=== PATIENT | male | born 1960 | race Caucasian/White ===

== ENCOUNTER 2016-12-10 03:54 | Emergency (ER) | payer OTHER ==
[~2016-12-10] VITALS: Ht 180.3 cm; Wt 70.3 kg
[~2016-12-10 03:54] MED LIST: CEPH500C2 PO; CLON0.2T PO; OXYC1TAB3 PO
[2016-12-10 03:57] VITALS: BP 129/87; TEMP 36.4; Ht 180.3 cm; Wt 70.3 kg
[2016-12-10] MEDS ORDERED: PROPARACAINE HCL 0.5% OP SOLN 15 ML BTL ONE (04:11)
[2016-12-10] MEDS ORDERED: OXYCODONE IR HOME PACK PO ONE (04:30)
[2016-12-10] MEDS ORDERED: CIPROFLOXACIN HCL 0.3% OP SOLN 2.5 ML BTL OP ONE (04:30)
[2016-12-10 04:46] VITALS: PULSE 99; O2SAT 97
--- NOTE | 2016-12-10 05:39 | EMERGENCY ROOM VISIT NOTE ---
ED Visit Note First contact with patient: 04:03 CHIEF COMPLAINT: Eye pain HISTORY OF PRESENT ILLNESS: This 56 year old male patient presents to the emergency department complaining of pain in the left eye for the past one hour. The patient states that when he went to bed he felt well, but when he woke up he had a very sharp pain in his left eye. There has been a constant moderate pain and irritation, redness and tearing in the eye. There is a mild blurring of vision at times and light bothers the eye. The vision has not been decreased over all. The patient does not wear contacts. 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 The patient rates the pain as sharp and 9/10. The patient has not had previous injuries to this eye. Tetanus shot is reportedly up to date. REVIEW OF SYSTEMS: A 6 system review of systems was completed with positives and pertinent negatives listed in the HPI. ALLERGIES:NKDA MEDICATIONS: No chronic medications PMH: Otherwise healthy SOCIAL HISTORY: Employed and lives with family PHYSICAL EXAM: Vital Signs: Reviewed Nurse's notes, vital signs stable. Visual acuity 20/30 bilateral. GENERAL: This is a white male, in no acute distress, but who is uncomfortable from the eye problem. Well-developed well-nourished. EYES: The pupils are equal round and reactive to light and accommodation. EOMs are full and without tenderness. There is discharge of clear tears from the left eye which is injected. There is no foreign body visible under the eyelid even after lid eversion. Funduscopic exam reveals no hemorrhages, papilledema, or other abnormalities. No foreign body was seen embedded in the cornea under slit lamp exam. The cornea was clear and no hyphema was seen. Fluorescein uptake was observed with ultraviolet light significant for a corneal abrasion between 2:00 and 7:00. EMERGENCY DEPARTMENT COURSE: Physical examination history were performed. Nursing notes and EMR were reviewed. The patient has left eye pain for the past hour. On examination he does have a notable corneal abrasion without laceration or ulceration. No foreign body is noted. The patient will be started on Ciloxan and given a home pack of OxyIR. He will be given information to follow with ophthalmology. Patient was invited back to the ER with any new, worsening, or concerning symptoms. Current/Historical Medications No Active Prescriptions or Reported Meds Allergies Coded Allergies: No Known Allergies (Verified , 4/28/17) Vital Signs Date Time Temp Pulse Resp B/P Pulse Ox O2 Delivery O2 Flow Rate FiO2 12/10/16 04:46 99 18 97 12/10/16 03:57 36.4 107 18 129/87 98 Room Air Medications Administered Medications (Trade) Dose Ordered Sig/Suki Route Start Time Stop Time Status Last Admin Dose Admin Ciprofloxacin HCl (Ciprofloxacin 0.3% Op Soln) 2 drops NOW ONCE OP 12/10/16 04:30 12/10/16 04:31 DC 12/10/16 04:30 2 DROPS Departure Information Impression Primary Impression: Corneal abrasion Dispostion Home / Self-Care Condition GOOD Prescriptions No Active Prescriptions or Reported Meds Referrals Marty Charles D.O. Forms HOME CARE DOCUMENTATION FORM, IMPORTANT VISIT INFORMATION Patient Instructions My [facility] Additional Instructions You were seen and evaluated today on an emergency basis only. This is not a substitute for, or an effort to provide, complete comprehensive medical care. It is not possible to recognize and treat all injuries or illnesses in a single emergency department visit. For this reason it is recommended that you followup with Ophthalmology, Dr. Portillo's office, in the next 1-2 days for recheck of your condition. Use Ciloxan Eye Drops: Instill 1-2 drops into the conjunctival sac every 2 hours while awake for 2 days and 1-2 drops every 4 hours while awake for the next 5 days Oxycodone (OxyIR) 5mg (homepack): Take ONE pill every SIX hours for breakthrough pain. Avoid alcohol, operating machinery or dangerous equipment, working on ladders or roofs, DRIVING, or situations where being under the influence may be dangerous. It is recommended to use an [id number] stool softener such as Colace, 100mg twice daily while taking this medication to avoid constipation. You are welcome to return to the emergency department anytime with new, worsening, or concerning symptoms.
== END 2016-12-10 04:46 | disposition home or self-care (01) ==
LOC: C.EDB 03:55 → C.EDA 04:46
DX: S05.02XA Injury of conjunctiva and corneal abrasion without foreign body, left eye, initial encounter (principal); X58.XXXA Exposure to other specified factors, initial encounter

== ENCOUNTER 2024-06-08 20:06 | Inpatient (IN) ==
--- NOTE | 2024-06-08 20:27 | Emergency Department Note ---
Impression & Plan Hypertension, Acute confusion ADMIT ED Provider Note HPI: History obtained from patient, bedside RN via EMS report. The patient is a 63-year-old gentleman who presents to the emergency department with confusion. Patient was reportedly found in his car in an altered state in the road. He was having difficulty trying to figure out how to use his car, patient reportedly had his car and drive and seemed confused and was turning the windshield wiper's on and off. Patient was not oriented to time and therefore was brought to the ER to be assessed. Per EMS report blood sugar was 122 in the field, on arrival here to the ED the patient is somewhat slow to respond to my questions but he is alert and oriented x 3. Patient states he was on his way to work when he felt "warm and sweaty" and that is all that he remembers. On arrival here to the ED otherwise the patient is noted to be hypertensive at 193/123, heart rate is 108, patient is saturating well on room air on arrival without increased work of breathing. Patient does not have any obvious focal deficits on arrival. ROS: - Per HPI Differential Diagnosis: Hypoglycemic event, polysubstance abuse, alcohol intoxication, stroke, intracranial hemorrhage, hepatic encephalopathy, infection/sepsis, amongst other potential pathologies. *Outpatient medications and allergy history reviewed. PE: General: Alert and oriented x 3 HEENT: Normocephalic, trachea midline Eyes: Extraocular eye movement is intact, no scleral erythema Pulmonary: Clear to auscultation bilaterally, no wheezing Cardio: Regular rate and rhythm GI: Abdomen is soft to palpation : No suprapubic tenderness MSK: No evidence of trauma or malformation of the extremities, no edema Skin: No evidence of rash Neuro: Alert, no focal deficits, equal bilateral nuclear medicine supervisor strength, symmetrical facial movements are appreciated, no ataxia on [id number] testing bilaterally, no drift of the upper extremities or lower extremities with testing against gravity Psychiatric: Cooperative INDEPENDENT INTERPRETATIONS: desk monitor: (As interpreted by myself): - An order was placed for continuous cardiac monitoring - Patient was noted to be in sinus rhythm with a rate of 70 EKG: (As interpreted by myself): Rate: 92 Rhythm: Normal sinus rhythm Intervals: Within normal limits ST changes: No ST elevation Time: 2010 Interventions provided in ED: -IV labetalol, IV hydralazine, IV nicardipine drip, lactated ringer bolus Medical Decision Making: Shortly after the patient arrived IV was established and lab work ordered, patient was placed on bus driver/monitor. Patient is a somewhat unclear historian, he does present with acute confusion. Unknown last known well. Patient does not have any focal deficits and given unclear last known well time in addition to reassuring neurologic exam he was not considered a candidate for acute intervention such as thrombolysis for potential stroke. Lab work shows no leukocytosis, hemoglobin is normal, platelet count is normal, CMP was obtained and does not show any critical findings, creatinine is mildly elevated at 1.73 with unclear baseline. Lactic acid is elevated at 5.2 for which the patient was given IV fluids. Troponin is negative, EKG shows normal sinus rhythm, urinalysis does not show any evidence of infection. Viral panel testing was obtained and is negative. CT imaging of the head as well as CT angiography of the head and neck were obtained and did not show any acute abnormalities. Patient's blood pressure remained markedly elevated greater than 200 systolic and therefore following IV labetalol and IV hydralazine without much improvement he was placed on a nicardipine drip. Unclear source for the patient's altered mental status, he does seem to be improving here in the ED from the standpoint of his mentation, he is alert and oriented x 3 although there is some delay with answering questioning. He is able to follow commands without issue and remains without any obvious focal deficits on my reevaluation. Given the patient's persistent hypertension with some mild confusion, I do feel he should be admitted to the hospital. Patient was placed on a nicardipine drip. Case was discussed with the on-call hospitalist, Dr. Edward, and the patient was placed for admission in stable/improved condition for further management. Consultants/Discussions held with other healthcare providers: -Hospitalist, Dr. Edward Disposition discussion held by myself with: -Patient * CRITICAL CARE TIME: ( 45 ) minutes -Stabilization/management of patient with hypertensive emergency and altered mental status requiring initiation of nicardipine drip, interpretation of diagnostic studies, time spent at the bedside, discussion with other healthcare providers and arrangement of admission. Diagnosis: 1. Altered mental status, acute 2. Hypertensive emergency, acute 3. Lactic acidosis, acute 4. Elevated creatinine, unknown chronicity Disposition: Admission Av Mendez DO Emergency Medicine Past Med/Surg History Problem List (Updated 06/09/24 @ 00:41 by Av Mendez DO) Acute confusion (Acute) Lactic acidosis Confusion Hyperglycemia Hypokalemia Renal insufficiency Hypertension (Acute) Stroke of right basal ganglia Social History Smoking Status: Former smoker Preferred Language: Japanese Allergies Allergies Allergy/AdvReac Type Severity Reaction Status Date / Time No Known Allergies Allergy Unknown Verified 12/10/16 04:33 Home Meds Home Medications Medication Instructions Recorded Confirmed No Known Home Medications 06/08/24 06/08/24 Results & Data (ED) Vital Signs Vital Signs - 24 hr 06/08/24 20:12 06/08/24 20:13 06/08/24 20:24 Temperature 36.5 C Temperature Source Oral Pulse Rate 93 H 108 H Pulse Rate [Apical] 90 Respiratory Rate 18 18 Respiratory Effort / Characteristics Non-Labored Spontaneous Non-Labored Spontaneous Respiratory Depth Normal Normal Respiratory Pattern Regular Regular Blood Pressure 193/123 H Blood Pressure [Right Arm] 206/128 H Blood Pressure Mean 146 Blood Pressure Mean [Right Arm] 154 Pulse Oximetry 100 96 Oxygen Delivery Method Room Air Room Air Sepsis Recent Fever Within 48 Hours No Sepsis New/Unexplained Change in Mental Status Yes Sepsis Action Taken by Nursing No Action Required 06/08/24 20:38 06/08/24 21:08 06/08/24 21:29 Temperature Temperature Source Pulse Rate 85 84 Pulse Rate [Apical] 79 Respiratory Rate 20 Respiratory Effort / Characteristics Non-Labored Spontaneous Respiratory Depth Normal Respiratory Pattern Regular Blood Pressure 203/121 H 215/135 H Blood Pressure [Right Arm] 234/142 H Blood Pressure Mean Blood Pressure Mean [Right Arm] 172 Pulse Oximetry 97 Oxygen Delivery Method Room Air Sepsis Recent Fever Within 48 Hours Sepsis New/Unexplained Change in Mental Status Sepsis Action Taken by Nursing 06/08/24 23:34 06/09/24 00:12 Temperature Temperature Source Pulse Rate 69 Pulse Rate [Apical] 90 Respiratory Rate 18 14 Respiratory Effort / Characteristics Non-Labored Spontaneous Respiratory Depth Normal Respiratory Pattern Regular Blood Pressure 178/103 H Blood Pressure [Right Arm] 205/112 H Blood Pressure Mean Blood Pressure Mean [Right Arm] 143 Pulse Oximetry 98 97 Oxygen Delivery Method Room Air Room Air Sepsis Recent Fever Within 48 Hours Sepsis New/Unexplained Change in Mental Status Sepsis Action Taken by Nursing Laboratory Data 06/08/24 20:18 06/08/24 20:18 Lab Results 06/08/24 06/08/24 06/08/24 Range/Units 20:11 20:18 20:35 WBC 8.12 (4.8-10.8) K/ul RBC 5.13 (4.70-6.10) M/uL Hgb 16.5 (14.0-18.0) g/dl POC Hgb (14.0-18.0) g/dl Hct 45.5 (42.0-52.0) % POC Hct (42-52) % MCV 88.7 (80.0-100.0) fL MCH 32.2 (25.0-34.0) pg MCHC 36.3 H (32.0-36.0) g/dL RDW Std Deviation 40.9 (36.4-46.3) fL RDW Coeff of Yomaira 12.4 (11.5-14.5) % Plt Count 139 (130-400) K/uL MPV 12.8 H (9.4-12.4) fL Immature Gran % (Auto) 0.4 % Neut % (Auto) 69.9 % Lymph % (Auto) 18.0 % [place] % (Auto) 9.0 % Eos % (Auto) 2.0 % Baso % (Auto) 0.7 % Neut # (Auto) 5.68 (1.40-6.50) K/uL Lymph # (Auto) 1.46 (1.20-3.40) K/uL [place] # (Auto) 0.73 H (0.11-0.59) K/uL Eos # (Auto) 0.16 (0.00-0.50) K/uL Baso # (Auto) 0.06 (0.00-0.20) K/uL Immature Gran # (Auto) 0.03 (0.01-0.20) K/uL PT 10.9 (9.0-12.0) Seconds INR 1.0 (0.9-1.1) APTT 23 (21-31) Seconds PTT Ratio 0.9 POC Sodium (135-144) mmol/L Sodium 139 (136-145) mmol/L POC Potassium (3.3-5.0) mmol/L Potassium 3.4 L (3.5-5.1) mmol/L POC Chloride (101-112) mmol/L Chloride 102 (98-107) mmol/L Carbon Dioxide 24 (21-32) mmol/L POC Total CO2 (24-31) mmol/L Anion Gap 13 H (3-11) POC Anion Gap (16-25) mmol/L POC BUN (7-18) mg/dl BUN 19 (6-23) mg/dl Creatinine 1.73 H (0.6-1.4) mg/dl POC Creatinine (0.6-1.3) mg/dl Est Cr Clr Drug Dosing 45.8 ml/min eGFR 43.27 BUN/Creatinine Ratio 11.0 (10-20) Glucose 155 H (70-99(Fasting)) mg/dl POC Glucose 126 H (70-99) mg/dl POC Glucose (other) (70-99) mg/dl Lactate 5.2 H* (0.4-2.0) mmol/L Calcium 9.8 (8.6-10.3) mg/dl POC Ioniz Calcium Dariana (1.12-1.32) mmol/l Magnesium 2.2 (1.7-2.4) mg/dl Total Bilirubin 0.8 (0.2-1.0) mg/dl AST 39 (13-39) U/L ALT 28 (7-52) U/L Alkaline Phosphatase 96 (34-104) U/L Ammonia 40.0 (18-72) umol/L Troponin I High Sens 13.3 (0-20) pg/ml Total Protein 7.3 (6.0-8.3) gm/dl Albumin 3.8 (3.4-5.0) gm/dl Globulin 3.5 (2.5-4.0) gm/dl Albumin/Globulin Ratio 1.1 (0.9-2) Urine Color Urine Appearance (Clear) Urine pH (4.5-7.5) Ur Specific [place] (1.000-1.030) Urine Protein (Negative) Urine Glucose (UA) (Negative) Urine Ketones (Negative) Urine Blood (Negative) Urine Nitrite (Negative) Urine Bilirubin (Negative) Urine Urobilinogen (Negative) Ur Leukocyte Esterase (Negative) Urine WBC (Auto) (0-5) /hpf Urine RBC (Auto) (0-2) /hpf U Hyaline Cast (Auto) (0-2) /lpf U Epithel Cells (Auto) (0-2) /hpf Urine Bacteria (Auto) (None Seen) Urine Opiates Screen (Neg) Ur Methadone, Qual (Neg) Urine Fentanyl Screen (Neg) Urine Barbiturates (Neg) Ur Phencyclidine (PCP) (Neg) U Amphetamin/Meth Scrn (Neg) MDMA (Ecstasy) Screen (Neg) U Benzodiazepines Scrn (Neg) Ur Cocaine Metabolite (Neg) U Marijuana (THC) Screen (Neg) Ethyl Alcohol mg/dL (<10.0) mg/dl Adenovirus (PCR) (NotDetected) B. pertussis DNA (PCR) (NotDetected) B.parapertussis DNA PCR (NotDetected) C. pneumoniae DNA (PCR) (NotDetected) Coronavirus OC43 (PCR) (NotDetected) Coronavirus HKU1 (PCR) (NotDetected) Coronavirus 229E (PCR) (NotDetected) SARS-CoV-2 (PCR) (NotDetected) Coronavirus NL63 (PCR) (NotDetected) Human Metapneumovir PCR (NotDetected) Influenza Type A (PCR) (NotDetected) Influenza Type B (PCR) (NotDetected) M. pneumoniae (PCR) (NotDetected) Parainfluenza 1 (PCR) (NotDetected) Parainfluenza 2 (PCR) (NotDetected) Parainfluenza 3 (PCR) (NotDetected) Parainfluenza 4 (PCR) (NotDetected) RSV (PCR) (NotDetected) Entero/Rhino (PCR) (NotDetected) 06/08/24 06/08/24 06/08/24 Range/Units 20:47 20:51 21:08 WBC (4.8-10.8) K/ul RBC (4.70-6.10) M/uL Hgb (14.0-18.0) g/dl POC Hgb 15.0 (14.0-18.0) g/dl Hct (42.0-52.0) % POC Hct 44 (42-52) % MCV (80.0-100.0) fL MCH (25.0-34.0) pg MCHC (32.0-36.0) g/dL RDW Std Deviation (36.4-46.3) fL RDW Coeff of Yomaira (11.5-14.5) % Plt Count (130-400) K/uL MPV (9.4-12.4) fL Immature Gran % (Auto) % Neut % (Auto) % Lymph % (Auto) % [place] % (Auto) % Eos % (Auto) % Baso % (Auto) % Neut # (Auto) (1.40-6.50) K/uL Lymph # (Auto) (1.20-3.40) K/uL [place] # (Auto) (0.11-0.59) K/uL Eos # (Auto) (0.00-0.50) K/uL Baso # (Auto) (0.00-0.20) K/uL Immature Gran # (Auto) (0.01-0.20) K/uL PT (9.0-12.0) Seconds INR (0.9-1.1) APTT (21-31) Seconds PTT Ratio POC Sodium 139 (135-144) mmol/L Sodium (136-145) mmol/L POC Potassium 2.9 L (3.3-5.0) mmol/L Potassium (3.5-5.1) mmol/L POC Chloride 102 (101-112) mmol/L Chloride (98-107) mmol/L Carbon Dioxide (21-32) mmol/L POC Total CO2 22 L (24-31) mmol/L Anion Gap (3-11) POC Anion Gap 18.0 (16-25) mmol/L POC BUN 18 (7-18) mg/dl BUN (6-23) mg/dl Creatinine (0.6-1.4) mg/dl POC Creatinine 1.7 H (0.6-1.3) mg/dl Est Cr Clr Drug Dosing ml/min eGFR BUN/Creatinine Ratio (10-20) Glucose (70-99(Fasting)) mg/dl POC Glucose (70-99) mg/dl POC Glucose (other) 157 H (70-99) mg/dl Lactate (0.4-2.0) mmol/L Calcium (8.6-10.3) mg/dl POC Ioniz Calcium Dariana 1.17 (1.12-1.32) mmol/l Magnesium (1.7-2.4) mg/dl Total Bilirubin (0.2-1.0) mg/dl AST (13-39) U/L ALT (7-52) U/L Alkaline Phosphatase (34-104) U/L Ammonia (18-72) umol/L Troponin I High Sens (0-20) pg/ml Total Protein (6.0-8.3) gm/dl Albumin (3.4-5.0) gm/dl Globulin (2.5-4.0) gm/dl Albumin/Globulin Ratio (0.9-2) Urine Color Urine Appearance (Clear) Urine pH (4.5-7.5) Ur Specific [place] (1.000-1.030) Urine Protein (Negative) Urine Glucose (UA) (Negative) Urine Ketones (Negative) Urine Blood (Negative) Urine Nitrite (Negative) Urine Bilirubin (Negative) Urine Urobilinogen (Negative) Ur Leukocyte Esterase (Negative) Urine WBC (Auto) (0-5) /hpf Urine RBC (Auto) (0-2) /hpf U Hyaline Cast (Auto) (0-2) /lpf U Epithel Cells (Auto) (0-2) /hpf Urine Bacteria (Auto) (None Seen) Urine Opiates Screen (Neg) Ur Methadone, Qual (Neg) Urine Fentanyl Screen (Neg) Urine Barbiturates (Neg) Ur Phencyclidine (PCP) (Neg) U Amphetamin/Meth Scrn (Neg) MDMA (Ecstasy) Screen (Neg) U Benzodiazepines Scrn (Neg) Ur Cocaine Metabolite (Neg) U Marijuana (THC) Screen (Neg) Ethyl Alcohol mg/dL < 10.0 (<10.0) mg/dl Adenovirus (PCR) Not Detected (NotDetected) B. pertussis DNA (PCR) Not Detected (NotDetected) B.parapertussis DNA PCR Not Detected (NotDetected) C. pneumoniae DNA (PCR) Not Detected (NotDetected) Coronavirus OC43 (PCR) Not Detected (NotDetected) Coronavirus HKU1 (PCR) Not Detected (NotDetected) Coronavirus 229E (PCR) Not Detected (NotDetected) SARS-CoV-2 (PCR) Not Detected (NotDetected) Coronavirus NL63 (PCR) Not Detected (NotDetected) Human Metapneumovir PCR Not Detected (NotDetected) Influenza Type A (PCR) Not Detected (NotDetected) Influenza Type B (PCR) Not Detected (NotDetected) M. pneumoniae (PCR) Not Detected (NotDetected) Parainfluenza 1 (PCR) Not Detected (NotDetected) Parainfluenza 2 (PCR) Not Detected (NotDetected) Parainfluenza 3 (PCR) Not Detected (NotDetected) Parainfluenza 4 (PCR) Not Detected (NotDetected) RSV (PCR) Not Detected (NotDetected) Entero/Rhino (PCR) Not Detected (NotDetected) 06/08/24 06/08/24 Range/Units 21:45 22:30 WBC (4.8-10.8) K/ul RBC (4.70-6.10) M/uL Hgb (14.0-18.0) g/dl POC Hgb (14.0-18.0) g/dl Hct (42.0-52.0) % POC Hct (42-52) % MCV (80.0-100.0) fL MCH (25.0-34.0) pg MCHC (32.0-36.0) g/dL RDW Std Deviation (36.4-46.3) fL RDW Coeff of Yomaira (11.5-14.5) % Plt Count (130-400) K/uL MPV (9.4-12.4) fL Immature Gran % (Auto) % Neut % (Auto) % Lymph % (Auto) % [place] % (Auto) % Eos % (Auto) % Baso % (Auto) % Neut # (Auto) (1.40-6.50) K/uL Lymph # (Auto) (1.20-3.40) K/uL [place] # (Auto) (0.11-0.59) K/uL Eos # (Auto) (0.00-0.50) K/uL Baso # (Auto) (0.00-0.20) K/uL Immature Gran # (Auto) (0.01-0.20) K/uL PT (9.0-12.0) Seconds INR (0.9-1.1) APTT (21-31) Seconds PTT Ratio POC Sodium (135-144) mmol/L Sodium (136-145) mmol/L POC Potassium (3.3-5.0) mmol/L Potassium (3.5-5.1) mmol/L POC Chloride (101-112) mmol/L Chloride (98-107) mmol/L Carbon Dioxide (21-32) mmol/L POC Total CO2 (24-31) mmol/L Anion Gap (3-11) POC Anion Gap (16-25) mmol/L POC BUN (7-18) mg/dl BUN (6-23) mg/dl Creatinine (0.6-1.4) mg/dl POC Creatinine (0.6-1.3) mg/dl Est Cr Clr Drug Dosing ml/min eGFR BUN/Creatinine Ratio (10-20) Glucose (70-99(Fasting)) mg/dl POC Glucose (70-99) mg/dl POC Glucose (other) (70-99) mg/dl Lactate 3.0 H* (0.4-2.0) mmol/L Calcium (8.6-10.3) mg/dl POC Ioniz Calcium Dariana (1.12-1.32) mmol/l Magnesium (1.7-2.4) mg/dl Total Bilirubin (0.2-1.0) mg/dl AST (13-39) U/L ALT (7-52) U/L Alkaline Phosphatase (34-104) U/L Ammonia (18-72) umol/L Troponin I High Sens (0-20) pg/ml Total Protein (6.0-8.3) gm/dl Albumin (3.4-5.0) gm/dl Globulin (2.5-4.0) gm/dl Albumin/Globulin Ratio (0.9-2) Urine Color Yellow Urine Appearance Clear (Clear) Urine pH 7.5 (4.5-7.5) Ur Specific [place] 1.015 (1.000-1.030) Urine Protein 2+ H (Negative) Urine Glucose (UA) Negative (Negative) Urine Ketones Negative (Negative) Urine Blood Negative (Negative) Urine Nitrite Negative (Negative) Urine Bilirubin Negative (Negative) Urine Urobilinogen Negative (Negative) Ur Leukocyte Esterase Negative (Negative) Urine WBC (Auto) 0-5 (0-5) /hpf Urine RBC (Auto) 0-2 (0-2) /hpf U Hyaline Cast (Auto) 0-2 (0-2) /lpf U Epithel Cells (Auto) 0-2 (0-2) /hpf Urine Bacteria (Auto) None Seen (None Seen) Urine Opiates Screen Neg (Neg) Ur Methadone, Qual Neg (Neg) Urine Fentanyl Screen Neg (Neg) Urine Barbiturates Neg (Neg) Ur Phencyclidine (PCP) Neg (Neg) U Amphetamin/Meth Scrn Neg (Neg) MDMA (Ecstasy) Screen Neg (Neg) U Benzodiazepines Scrn Neg (Neg) Ur Cocaine Metabolite Neg (Neg) U Marijuana (THC) Screen Pos H (Neg) Ethyl Alcohol mg/dL (<10.0) mg/dl Adenovirus (PCR) (NotDetected) B. pertussis DNA (PCR) (NotDetected) B.parapertussis DNA PCR (NotDetected) C. pneumoniae DNA (PCR) (NotDetected) Coronavirus OC43 (PCR) (NotDetected) Coronavirus HKU1 (PCR) (NotDetected) Coronavirus 229E (PCR) (NotDetected) SARS-CoV-2 (PCR) (NotDetected) Coronavirus NL63 (PCR) (NotDetected) Human Metapneumovir PCR (NotDetected) Influenza Type A (PCR) (NotDetected) Influenza Type B (PCR) (NotDetected) M. pneumoniae (PCR) (NotDetected) Parainfluenza 1 (PCR) (NotDetected) Parainfluenza 2 (PCR) (NotDetected) Parainfluenza 3 (PCR) (NotDetected) Parainfluenza 4 (PCR) (NotDetected) RSV (PCR) (NotDetected) Entero/Rhino (PCR) (NotDetected) Administered Medications Discontinued Medications Aspirin (Aspirin 81 Mg Chew) 324 mg PO NOW STA Stop: 06/08/24 23:58 Last Admin: 06/09/24 00:10 Dose: 324 mg Documented By: TOBY Hydralazine HCl (Hydralazine Hcl 20 Mg/Ml Vial) 10 mg IV NOW STA Stop: 06/08/24 21:26 Last Admin: 06/08/24 21:29 Dose: 10 mg Documented By: TOBY Lactated Ringer's (Lr) 2,000 mls @ 999 mls/hr IV .Q2H1M ONE Stop: 06/08/24 23:25 Last Infusion: 06/08/24 22:30 Dose: 0 mls/hr Documented By: Admin: 06/08/24 21:30 Dose: 999 mls/hr Documented By: EMB Nicardipine HCl 25 mg/ Sodium (Chloride) 250 mls @ 50 mls/hr IV .Q5H TYLER; Protocol Stop: 07/08/24 21:44 Last Admin: 06/08/24 22:48 Dose: Not Given Documented By: EMB Ioversol (Optiray 320 125ml) 120 ml IV ONCE ONE Stop: 06/08/24 21:03 Last Admin: 06/08/24 21:03 Dose: 120 ml Documented By: GERARD Labetalol HCl (Labetalol Hcl Iv 5 Mg/Ml 20ml) 15 mg IV NOW STA Stop: 06/08/24 20:35 Last Admin: 06/08/24 20:38 Dose: 15 mg Documented By: TOBY Miscellaneous (Stat Iv Infusion Titration Per Protocol) 1 each N/A NOW STA Stop: 06/08/24 21:44 Last Admin: 06/08/24 22:48 Dose: Not Given Documented By: EMB Imaging Data Radiologist's Impression: Head CT 06/08/24 20:24 Exam(s): CT HEAD Without Contrast EXAM: CT Head Without Intravenous Contrast CLINICAL HISTORY: Reason for exam: neuro deficit, acute stroke suspected. TECHNIQUE: Axial computed tomography images of the head/brain without intravenous contrast. CTDI is 30.6 mGy and DLP is 512.02 mGy-cm. Automated exposure control was utilized for the study. A dose lowering technique was utilized adhering to the principles of ALARA. COMPARISON: No relevant prior studies available. FINDINGS: Brain: No intracranial hemorrhage, mass-effect, or cerebral edema. Global parenchymal atrophy. Periventricular and subcortical low attenuation which is nonspecific but favored to represent chronic microvascular ischemic changes. Ventricles: Unremarkable. Bones/joints: Unremarkable. No fracture. Soft tissues: Unremarkable. Sinuses: No acute sinusitis. Mastoid air cells: Unremarkable as visualized. IMPRESSION: 1. No acute intracranial abnormality. 2. Atrophy and chronic microvascular ischemic changes. Electronically signed by: Oskar Don MD 06/08/24 21:26 PM Head CTA 06/08/24 20:24 Exam(s): CTA HEAD With Contrast IV Amt: 120ml optiray 320 EXAM: CT Angiography Head With Intravenous Contrast CLINICAL HISTORY: Reason for exam: neuro deficit, acute stroke suspected. TECHNIQUE: Axial computed tomographic angiography images of the head with intravenous contrast. CTDI is 74.71 mGy and DLP is 1076.1 mGy-cm. Automated exposure control was utilized for the study. A dose lowering technique was utilized adhering to the principles of ALARA. MIP reconstructed images were created and reviewed. CONTRAST: Patient received 120ml optiray 320 of IV contrast COMPARISON: No relevant prior studies available. FINDINGS: Right internal carotid artery: No acute findings. Intracranial segment is patent with no significant stenosis. No aneurysm. Right anterior cerebral artery: Unremarkable. No occlusion or significant stenosis. No aneurysm. Right middle cerebral artery: Unremarkable. No occlusion or significant stenosis. No aneurysm. Right posterior cerebral artery: Unremarkable. No occlusion or significant stenosis. No aneurysm. Right vertebral artery: Unremarkable as visualized. Left internal carotid artery: No acute findings. Intracranial segment is patent with no significant stenosis. No aneurysm. Left anterior cerebral artery: Unremarkable. No occlusion or significant stenosis. No aneurysm. Left middle cerebral artery: Unremarkable. No occlusion or significant stenosis. No aneurysm. Left posterior cerebral artery: Unremarkable. No occlusion or significant stenosis. No aneurysm. Left vertebral artery: Unremarkable as visualized. Basilar artery: Unremarkable. No occlusion or significant stenosis. No aneurysm. IMPRESSION: Normal head CTA. Electronically signed by: Oskar Don MD 06/08/24 21:33 PM Neck CTA 06/08/24 20:24 Exam(s): CTA NECK With Contrast IV Amt: 120ml optiray 320 EXAM: CT Angiography Neck With Intravenous Contrast CLINICAL HISTORY: Reason for exam: neuro deficit, acute stroke suspected. TECHNIQUE: Routine carotid CT angiography protocol was performed with intravenous contrast. NASCET criteria using the distal ICAs for comparison were used for evaluation of stenoses. CTDI is 74.71 mGy and DLP is 1076.1 mGy-cm. Automated exposure control was utilized for the study. A dose lowering technique was utilized adhering to the principles of ALARA. MIP reconstructed images were created and reviewed. CONTRAST: Patient received 120ml optiray 320 of IV contrast COMPARISON: None. FINDINGS: VASCULATURE: Right common carotid artery: Unremarkable. No occlusion or significant stenosis. No dissection. Right internal carotid artery: Unremarkable. Extracranial segment is patent with no occlusion or significant stenosis. No dissection. Right vertebral artery: Unremarkable. No occlusion or significant stenosis. No dissection. Left common carotid artery: Unremarkable. No occlusion or significant stenosis. No dissection. Left internal carotid artery: Unremarkable. Extracranial segment is patent with no occlusion or significant stenosis. No dissection. Left vertebral artery: Unremarkable. No occlusion or significant stenosis. No dissection. NECK: Bones/joints: Advanced degenerative spondylosis within the cervical spine. No acute fracture. Soft tissues: Unremarkable. Lung apices: Clear. CAROTID STENOSIS REFERENCE USING NASCET CRITERIA: % ICA stenosis = (1 - narrowest ICA diameter/diameter of distal cervical ICA) x 100. Mild - <50% stenosis. Moderate - 50-69% stenosis. Severe - 70-94% stenosis. Near occlusion - 95-99% stenosis. Occluded - 100% stenosis. IMPRESSION: No acute findings in the arteries of the neck. Electronically signed by: Oskar Don MD 06/08/24 21:36 PM Brain MRI 06/08/24 22:30 CR Exam(s): MRI HEAD Without Contrast EXAM: MR Head Without Intravenous Contrast CLINICAL HISTORY: Reason for exam: confusion, HTN. TECHNIQUE: Magnetic resonance images of the head/brain without intravenous contrast in multiple planes. COMPARISON: Head CT 06/08/2024. FINDINGS: Brain: Restricted diffusion within the right basal ganglia consistent with acute infarct. No intracranial hemorrhage. Global parenchymal atrophy with confluent T2/flair hyperintensities consistent with chronic microvascular ischemic changes. Ventricles: Unremarkable. No ventriculomegaly. Bones/joints: Unremarkable. No acute fracture. Sinuses: Unremarkable as visualized. No acute sinusitis. Mastoid air cells: Unremarkable as visualized. No mastoid effusion. Orbits: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
[2024-06-08] MEDS: LABETALOL HCL IV 5 MG/ML 20ML IV STA (20:38)
[2024-06-08 20:52] LABS: Basophils # (auto) 0.06 K/uL (0.00-0.20); Basophils % (auto) 0.7 %; Eosinophils # (auto) 0.16 K/uL (0.00-0.50); Hematocrit (blood only) 45.5 % (42.0-52.0); Hemoglobin 16.5 g/dl (14.0-18.0); Immature Granulocytes # (auto) 0.03 K/uL (0.01-0.20); Immature Granulocytes % (auto) 0.4 %; Lymphocytes # (auto) 1.46 K/uL (1.20-3.40); Mean Corpuscular Hemoglobin 32.2 pg (25.0-34.0); Mean Corpuscular Hgb Conc 36.3 g/dL (32.0-36.0); Mean Corpuscular Volume 88.7 fL (80.0-100.0); Mean Platelet Volume 12.8 fL (9.4-12.4); Monocytes # (auto) 0.73 K/uL (0.11-0.59); Neutrophils # (auto) 5.68 K/uL (1.40-6.50); Neutrophils % (auto) 69.9 %; Platelet Count 139 K/uL (130-400); RDW Coefficient of Variation 12.4 % (11.5-14.5); RDW Standard Deviation 40.9 fL (36.4-46.3); Red Blood Count 5.13 M/uL (4.70-6.10); White Blood Count 8.12 K/ul (4.8-10.8)
[2024-06-08 21:00] LABS: iSTAT Creatinine 1.7 mg/dl (0.6-1.3); iSTAT Ionized Calcium 1.17 mmol/l (1.12-1.32); iSTAT Potassium 2.9 mmol/L (3.3-5.0)
[2024-06-08 21:01] LABS: Albumin Globulin Ratio 1.1 (0.9-2); Albumin Level 3.8 gm/dl (3.4-5.0); Bilirubin,Total 0.8 mg/dl (0.2-1.0); Calcium 9.8 mg/dl (8.6-10.3); Creatinine Clr Calc Pharmacy 45.8 ml/min; Globulin 3.5 gm/dl (2.5-4.0); Magnesium 2.2 mg/dl (1.7-2.4); Potassium 3.4 mmol/L (3.5-5.1); Total Protein 7.3 gm/dl (6.0-8.3)
[2024-06-08] MEDS: OPTIRAY 320 125ml IV ONE (21:03)
[2024-06-08 21:08] LABS: Troponin I High Sensitivity 13.3 pg/ml (0-20)
[2024-06-08 21:13] LABS: Partial Thromboplastin Ratio 0.9; Partial Thromboplastin Time 23 Seconds (21-31); Prothrombin Time 10.9 Seconds (9.0-12.0)
--- NOTE | 2024-06-08 21:27 | CT Scan Report ---
Exam(s): CT HEAD Without Contrast EXAM: CT Head Without Intravenous Contrast CLINICAL HISTORY: Reason for exam: neuro deficit, acute stroke suspected. TECHNIQUE: Axial computed tomography images of the head/brain without intravenous contrast. CTDI is 30.6 mGy and DLP is 512.02 mGy-cm. Automated exposure control was utilized for the study. A dose lowering technique was utilized adhering to the principles of ALARA. COMPARISON: No relevant prior studies available. FINDINGS: Brain: No intracranial hemorrhage, mass-effect, or cerebral edema. Global parenchymal atrophy. Periventricular and subcortical low attenuation which is nonspecific but favored to represent chronic microvascular ischemic changes. Ventricles: Unremarkable. Bones/joints: Unremarkable. No fracture. Soft tissues: Unremarkable. Sinuses: No acute sinusitis. Mastoid air cells: Unremarkable as visualized. IMPRESSION: 1. No acute intracranial abnormality. 2. Atrophy and chronic microvascular ischemic changes. Electronically signed by: Oskar Don MD 06/08/24 21:26 PM
[2024-06-08] MEDS: hydrALAZINE HCL 20 MG/ML VIAL IV STA (21:29)
[2024-06-08] MEDS: LACTATED RINGER'S 2,000 ML IV ONE (21:30)
--- NOTE | 2024-06-08 21:34 | CT Scan Report ---
Exam(s): CTA HEAD With Contrast IV Amt: 120ml optiray 320 EXAM: CT Angiography Head With Intravenous Contrast CLINICAL HISTORY: Reason for exam: neuro deficit, acute stroke suspected. TECHNIQUE: Axial computed tomographic angiography images of the head with intravenous contrast. CTDI is 74.71 mGy and DLP is 1076.1 mGy-cm. Automated exposure control was utilized for the study. A dose lowering technique was utilized adhering to the principles of ALARA. MIP reconstructed images were created and reviewed. CONTRAST: Patient received 120ml optiray 320 of IV contrast COMPARISON: No relevant prior studies available. FINDINGS: Right internal carotid artery: No acute findings. Intracranial segment is patent with no significant stenosis. No aneurysm. Right anterior cerebral artery: Unremarkable. No occlusion or significant stenosis. No aneurysm. Right middle cerebral artery: Unremarkable. No occlusion or significant stenosis. No aneurysm. Right posterior cerebral artery: Unremarkable. No occlusion or significant stenosis. No aneurysm. Right vertebral artery: Unremarkable as visualized. Left internal carotid artery: No acute findings. Intracranial segment is patent with no significant stenosis. No aneurysm. Left anterior cerebral artery: Unremarkable. No occlusion or significant stenosis. No aneurysm. Left middle cerebral artery: Unremarkable. No occlusion or significant stenosis. No aneurysm. Left posterior cerebral artery: Unremarkable. No occlusion or significant stenosis. No aneurysm. Left vertebral artery: Unremarkable as visualized. Basilar artery: Unremarkable. No occlusion or significant stenosis. No aneurysm. IMPRESSION: Normal head CTA. Electronically signed by: Oskar Don MD 06/08/24 21:33 PM
--- NOTE | 2024-06-08 21:37 | CT Scan Report ---
Exam(s): CTA NECK With Contrast IV Amt: 120ml optiray 320 EXAM: CT Angiography Neck With Intravenous Contrast CLINICAL HISTORY: Reason for exam: neuro deficit, acute stroke suspected. TECHNIQUE: Routine carotid CT angiography protocol was performed with intravenous contrast. NASCET criteria using the distal ICAs for comparison were used for evaluation of stenoses. CTDI is 74.71 mGy and DLP is 1076.1 mGy-cm. Automated exposure control was utilized for the study. A dose lowering technique was utilized adhering to the principles of ALARA. MIP reconstructed images were created and reviewed. CONTRAST: Patient received 120ml optiray 320 of IV contrast COMPARISON: None. FINDINGS: VASCULATURE: Right common carotid artery: Unremarkable. No occlusion or significant stenosis. No dissection. Right internal carotid artery: Unremarkable. Extracranial segment is patent with no occlusion or significant stenosis. No dissection. Right vertebral artery: Unremarkable. No occlusion or significant stenosis. No dissection. Left common carotid artery: Unremarkable. No occlusion or significant stenosis. No dissection. Left internal carotid artery: Unremarkable. Extracranial segment is patent with no occlusion or significant stenosis. No dissection. Left vertebral artery: Unremarkable. No occlusion or significant stenosis. No dissection. NECK: Bones/joints: Advanced degenerative spondylosis within the cervical spine. No acute fracture. Soft tissues: Unremarkable. Lung apices: Clear. CAROTID STENOSIS REFERENCE USING NASCET CRITERIA: % ICA stenosis = (1 - narrowest ICA diameter/diameter of distal cervical ICA) x 100. Mild - <50% stenosis. Moderate - 50-69% stenosis. Severe - 70-94% stenosis. Near occlusion - 95-99% stenosis. Occluded - 100% stenosis. IMPRESSION: No acute findings in the arteries of the neck. Electronically signed by: Oskar Don MD 06/08/24 21:36 PM
[2024-06-08 21:46] LABS: Adenovirus PCR Not Detected (NotDetected); Bordetella parapertussis PCR Not Detected (NotDetected); Bordetella pertussis PCR Not Detected (NotDetected); Chlamydia pneumoniae PCR Not Detected (NotDetected); Coronavirus 229E PCR Not Detected (NotDetected); Coronavirus CoV-2 (COVID19)PCR Not Detected (NotDetected); Coronavirus HKU1 PCR Not Detected (NotDetected); Coronavirus NL63 PCR Not Detected (NotDetected); Coronavirus OC43PCR Not Detected (NotDetected); Human Metapneumovirus PCR Not Detected (NotDetected); Influenza A PCR Not Detected (NotDetected); Influenza B PCR Not Detected (NotDetected); Mycoplasma pneumoniae PCR Not Detected (NotDetected); Parainfluenza Virus 1 PCR Not Detected (NotDetected); Parainfluenza Virus 2 PCR Not Detected (NotDetected); Parainfluenza Virus 3 PCR Not Detected (NotDetected); Parainfluenza Virus 4 PCR Not Detected (NotDetected); Respiratory Syncytial VirusPCR Not Detected (NotDetected); Rhinovirus/Enterovirus PCR Not Detected (NotDetected)
[2024-06-08 22:06] LABS: Appearance Urine Clear (Clear); Bacteria Urine Automated None Seen (None Seen); Bilirubin Urine Negative (Negative); Blood Urine Negative (Negative); Cast Urine Automated 0-2 /lpf (0-2); Color Urine Yellow; Epithelial Cell Urine Auto 0-2 /hpf (0-2); Glucose Urine UA Negative (Negative); Ketones Urine Negative (Negative); Leukocyte Esterase Urine Negative (Negative); Nitrite Urine Negative (Negative); Protein Urine 2+ (Negative); RBC Urine Automated 0-2 /hpf (0-2); Specific Gravity Urine 1.015 (1.000-1.030); Urobilinogen Urine Negative (Negative); WBC Urine Automated 0-5 /hpf (0-5); pH Urine 7.5 (4.5-7.5)
[2024-06-08] MEDS: niCARdipine 25 MG in SODIUM CHLORIDE 0.9% 240 ML IV SCH (22:48)
[2024-06-08] MEDS: STAT IV Infusion **Titration per Protocol STA (22:48)
[2024-06-08 23:19] LABS: Amphetamines+Metham, Urine Neg (Neg); Barbiturates, Urine Neg (Neg); Benzodiazepine, Urine Neg (Neg); Cocaine, Urine Neg (Neg); Fentanyl, Urine Neg (Neg); MDMA (Ecstacy), Urine Neg (Neg); Marijuana, Urine Pos (Neg); Methadone, Urine Neg (Neg); Opiate, Urine Neg (Neg); Phencyclidine, Urine Neg (Neg)
--- NOTE | 2024-06-08 23:29 | Magnetic Resonance Report ---
Exam(s): MRI HEAD Without Contrast EXAM: MR Head Without Intravenous Contrast CLINICAL HISTORY: Reason for exam: confusion, HTN. TECHNIQUE: Magnetic resonance images of the head/brain without intravenous contrast in multiple planes. COMPARISON: Head CT 06/08/2024. FINDINGS: Brain: Restricted diffusion within the right basal ganglia consistent with acute infarct. No intracranial hemorrhage. Global parenchymal atrophy with confluent T2/flair hyperintensities consistent with chronic microvascular ischemic changes. Ventricles: Unremarkable. No ventriculomegaly. Bones/joints: Unremarkable. No acute fracture. Sinuses: Unremarkable as visualized. No acute sinusitis. Mastoid air cells: Unremarkable as visualized. No mastoid effusion. Orbits: Unremarkable as visualized. IMPRESSION: 1. Restricted diffusion within the right basal ganglia consistent with acute infarct. 2. Atrophy and chronic microvascular ischemic changes. Communications: Call Doctor Stroke Electronically signed by: Oskar Don MD 06/08/24 23:28 PM
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
[2024-06-09] MEDS: ASPIRIN 81 MG CHEW PO STA (00:10)
[2024-06-09] MEDS ORDERED: ONDANSETRON INJ 2 MG/ML 2 ML VIAL IV PRN (00:38)
[2024-06-09] MEDS ORDERED: PHARMACIST DISCHARGE MED REC CONSULT PRN (00:38)
[2024-06-09] MEDS ORDERED: ACETAMINOPHEN 325 MG TAB PO PRN (00:38)
[2024-06-09] MEDS: ATORVASTATIN 40 MG TAB PO STA (00:51)
[2024-06-09] MEDS ORDERED: INFLUENZA VACC TS2024-25(65y+)/PF (IIV3) 0.5mL Syr IM ONE (00:57)
[2024-06-09 06:26] LABS: Basophils # (auto) 0.03 K/uL (0.00-0.20); Basophils % (auto) 0.3 %; Eosinophils # (auto) 0.01 K/uL (0.00-0.50); Eosinophils % (auto) 0.1 %; Hematocrit (blood only) 41.8 % (42.0-52.0); Hemoglobin 15.2 g/dl (14.0-18.0); Immature Granulocytes # (auto) 0.02 K/uL (0.01-0.20); Immature Granulocytes % (auto) 0.2 %; Lymphocytes # (auto) 1.28 K/uL (1.20-3.40); Lymphocytes % (auto) 14.6 %; Mean Corpuscular Hemoglobin 31.7 pg (25.0-34.0); Mean Corpuscular Hgb Conc 36.4 g/dL (32.0-36.0); Mean Corpuscular Volume 87.3 fL (80.0-100.0); Mean Platelet Volume 12.5 fL (9.4-12.4); Monocytes # (auto) 0.71 K/uL (0.11-0.59); Monocytes % (auto) 8.1 %; Neutrophils # (auto) 6.71 K/uL (1.40-6.50); Neutrophils % (auto) 76.7 %; Platelet Count 131 K/uL (130-400); RDW Coefficient of Variation 12.5 % (11.5-14.5); RDW Standard Deviation 39.9 fL (36.4-46.3); Red Blood Count 4.79 M/uL (4.70-6.10); White Blood Count 8.76 K/ul (4.8-10.8)
[2024-06-09 06:41] LABS: Albumin Globulin Ratio 1.3 (0.9-2); Albumin Level 3.5 gm/dl (3.4-5.0); BUN Creatinine Ratio 9.7 (10-20); Chol HDL Ratio 2.2 (0-5); Creatinine Clr Calc Pharmacy 50.1 ml/min; Globulin 2.8 gm/dl (2.5-4.0); Potassium 3.3 mmol/L (3.5-5.1); Total Protein 6.3 gm/dl (6.0-8.3)
[2024-06-09 06:53] LABS: Troponin I High Sensitivity 53.9 pg/ml (0-20)
[2024-06-09 06:55] LABS: INR 1.1 (0.9-1.1); Partial Thromboplastin Ratio 0.9; Partial Thromboplastin Time 25 Seconds (21-31); Prothrombin Time 11.4 Seconds (9.0-12.0)
[2024-06-09 07:13] LABS: Estimated Average Glucose 108 mg/dl; Hemoglobin A1C 5.4 % (4.5-5.6)
--- NOTE | 2024-06-09 07:38 | Electrocardiogram Report ---
Test Reason : Blood Pressure : */* mmHG Vent. Rate : 92 BPM Atrial Rate : 92 BPM P-R Int : 134 ms QRS Dur : 112 ms QT Int : 396 ms P-R-T Axes : 17 33 -6 degrees QTcB Int : 489 ms Normal sinus rhythm Incomplete right bundle branch block Abnormal ECG Confirmed by Marty Arndt ([id number]) on 06/09/2024 7:37:45 AM Referred By: NO PCP Confirmed By: Marty Arndt
--- NOTE | 2024-06-09 08:12 | XRay Report ---
SINGLE VIEW CHEST CLINICAL HISTORY: Change in mental status. FINDINGS: An AP, portable, upright chest radiograph is compared to study dated 02/05/2010. The patient is status post midline sternotomy. The heart is enlarged noting atherosclerotic calcification of the thoracic aorta. The pulmonary vasculature is noncongested. Emphysema and chronic interstitial thicke jacinta is similar to previous. There is bibasilar scarring/atelectasis. Question trace pleural effusion s. There is no airspace consolidation typical for pneumonia. No pneumothorax is seen. The bony thorax is grossly intact. IMPRESSION: 1. Cardiomegaly and emphysema with no acute cardiopulmonary abnormality identified. 2. Question trace pleural effusions. ACT 112: Negative or not required by law. Electronically signed by: Steven Soto M.D. 06/09/2024 8:10 AM
--- NOTE | 2024-06-09 08:49 | Neurology Consultation ---
Date of Consultation June 09, 2024 Assessment & Plan (1) Acute CVA (cerebrovascular accident): (2) Hypertension: (3) Acute confusion: (4) Chronic cerebral ischemia: Plan This patient has evidence of an acute right basal ganglia area stroke. It is of relatively small size. On neurologic examination he has no focal findings or deficits. There is no meningeal signs or obvious encephalopathy. He is sleepy/tired but not "confused". The etiology of the stroke is likely due to hypertensive small vessel ischemic disease. His blood pressure was quite high and he had some nonspecific symptoms more consistent with hypertensive encephalopathy. On MRI he has evidence of moderate to significant old small vessel ischemic disease and CT angiography shows no evidence of large vessel stenosis in the head or neck. He does not have any cardiac dysrhythmia or history to suggest embolus although echocardiogram is pending. He has significant risk factors for stroke especially hypertension. He is a former longtime cigarette smoker and has a mildly elevated glucose although the hemoglobin A1c was quite normal. He has no dyslipidemia on fasting lipid profile. Recommendations: 1. Control blood pressure as you are doing, aiming for a mean arterial pressure of approximately 100. 2. Agree with continuing 81 mg aspirin tablet daily 3. Since his total cholesterol is less than 150 he would not be a high-dose statin candidate. Nevertheless, I agree with atorvastatin 40 mg daily. 4. Increase activity as able 5. Consider TSH, B12, Lyme antibody titer, and ESR. 6. Awaiting echocardiogram results 7. The [facility]. Overall, I spent a total of 75 minutes with this case including review of records, review of MRI films, direct evaluation the patient at bedside, report generation, and discussion of the case with the patient and RN at bedside, and Dr. Toussaint, including differential diagnosis and treatment options. History of Present Illness Reason for Consultation: Patient is a 63-year-old, who presents to see at the request of Dr. Edward, for neurologic consultation regarding stroke. Requesting Physician: Dr. Edward Attending Physician: Jono Toussaint MD History of Present Illness This patient cannot give me any details regarding any past medical history as he has not seen a PCP in many years. He has no history that he knows of regard hyp ertension, diabetes, heart disease, dyslipidemia, or previous stroke. He takes no medication except for a "stomach pill "occasionally. Patient was in [place] on June 08 shopping at [facility]. He was driving back to [facility], when he had the sudden onset of feeling hot all over. He had a bifrontal pounding headache and he pulled over to the side of the road. He was very lightheaded. He must of passed out but does not recall anything until the police came and woke him up. He was brought to the emergency room. He arrived at the emergency room June 08 at 2011 with a temperature 36.5, pulse of 108, respiratory rate 18, blood pressure 193/123, and O2 saturation 100%. On examination he has no focal findings. CBC was unremarkable. CHEM profile was remarkable for a creatinine of 1.7, glucose 155, lactate 5.2, ammonia 40 and urinalysis was unremarkable. Talk screen was positive for marijuana. CT scan of the head showed no acute stroke but there was some old ischemia noted. CT angiography of the head neck showed no vascular stenoses or anomalies. MRI of the brain without contrast revealed a relatively small right basal ganglia area acute stroke. There is mild generalized atrophy but moderate old small vessel ischemia. I reviewed these films. Echocardiogram is pending. Laboratory studies from this morning show an unremarkable CBC and a CHEM profile with a glucose of 107, creatinine 1.44, AST of 53, and troponin of 53.9. This morning, the patient feels "back to my old self". He denies headaches, dizziness or lightheadedness, numbness or weakness in the limbs, pain, memory issues, or incontinence of urine. He does feel sleepy this morning. Allergies Allergy/AdvReac Type Severity Reaction Status Date / Time No Known Allergies Allergy Unknown Verified 12/10/16 04:33 Home Medications Medication Instructions Recorded Confirmed Type No Known Home Medications 06/08/24 06/08/24 History Patient History Family History Mother , in her 70s of unknown cause No problems noted. Father , in his 80s of the stroke. 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 [employer] Feels Safe at Home: Yes Assistive Devices: None and Glasses Review of Systems Constitutional: + fatigue; no fever and no weakness Eyes: no diplopia, no eye pain and no worsening vision Ear, Nose, Mouth, Throat: no ear pain, no tinnitus, no hearing loss, no dizziness, no snoring, no hoarseness and no dysphagia Respiratory: no cough and no dyspnea Cardiovascular: no chest pain, no palpitations and no lightheadedness Gastrointestinal: no abdominal pain, no nausea and no vomiting Musculoskeletal: no back pain, no neck pain, no radicular pain, no joint pain and no myalgia Integumentary: no rash and no lesions Neurologic: no gait abnormality, no localized weakness, no generalized weakness, no tingling, no numbness, no tremor(s), no abnormal movements, no headache(s), no abnormal speech, no confusion and no memory loss Psychiatric: no depression, no irritability, no anxiety, no difficulty concentrating, no confusion and no hallucinations Endocrine: no fatigue and no flushing Hematologic / Lymphatic: no easy bleeding and no easy bruising Allergy / Immunological: no urticaria and no problem reported Exam (Neuro) Physical Exam: The patient is right-handed. Although the patient was asleep when I came in the room, he aroused with voice and stayed awake, alert, and attentive. Speech is normal without any aphasia or dysarthria. Mentation and thought processes are intact, with full orientation and normal fund of knowledge. Mood and affect are normal and appropriate. Appearance and grooming are normal. Short and long-term memory are reasonable to conversation. Pupils are 4 mm bilaterally and reactive to light. Extraocular eye muscles are intact without nystagmus. Visual acuity and visual moore seem normal grossly to confrontation. There are no deficits to sensation in the face in all 3 distributions of the fifth cranial nerve bilaterally. Corneal reflexes are positive bilaterally. Facial strength and symmetry was normal bilaterally. Hearing seems intact grossly to voice and finger rub bilaterally. Palate moves well without asymmetry. There is normal sternocleidomastoid and trapezius strength bilaterally. Tongue is midline with good strength bilaterally. Neck has a full range of motion without discomfort. There are no cervical bruits bilaterally. There are no cranial or ocular bruits. Heart is without murmur. There is a regular rhythm and rate. Cervical, thoracic, and lumbar spine are nontender to palpation. Gait is narrow based, with good arm swing, turns, and stance. Balance is normal eyes open. With outstretched arms there is no drift. There are no resting, postural, or action tremors. There is no ataxia with finger to nose testing. There is good facility in the hands. No other abnormal involuntary movements are noted. Motor strength is 5/5 diffusely in the arms bilaterally including deltoids, biceps, triceps, brachioradialis, wrist flexors and extensors, horse doctor, and intrinsic hand muscles. Motor strength is 5/5 diffusely in the legs bilaterally including hip flexors, quadriceps, hamstrings, gastrocnemius, tibialis anterior, tibialis posterior, and Peroneii muscles bilaterally. Toe extensors are normal and there is good bulk in the extensor digitorum brevis muscles bilaterally. The limbs have good tone without rigidity or spasticity. There is no atrophy noted in the muscles. Muscle bulk is normal, there is no tenderness to palpation, no myotonia to percussion, and no fasciculations seen. Sensory examination is intact to touch and pin throughout all 4 limbs diffusely. Reflexes are 2/4 in the biceps, triceps, brachioradialis, quadriceps, and Achilles tendons bilaterally. Toes are downgoing with plantar stimulation bilaterally. Peripheral pulses are present and of normal quality distally in all 4 limbs. The re is no peripheral edema noted in the limbs. Results & Data Vital Signs (Past 12 Hours) Vital Signs Temp Pulse Pulse Resp BP BP BP 06/09/24 07:27 100 H 06/09/24 07:14 36.4 C L 76 18 151/81 H 06/09/24 03:10 36.8 C 101 H 18 141/92 H 06/09/24 01:56 70 06/09/24 00:39 36.9 C 70 18 215/119 H 208/123 H 06/09/24 00:38 06/09/24 00:12 69 14 178/103 H 06/08/24 23:34 90 18 205/112 H 06/08/24 21:29 79 20 234/142 H 06/08/24 21:08 84 215/135 H 06/08/24 20:38 85 203/121 H Pulse Ox Pulse Ox O2 Del Method O2 Del Method 06/09/24 07:27 06/09/24 07:14 97 Room Air 06/09/24 03:10 97 Room Air 06/09/24 01:56 06/09/24 00:39 98 Room Air 06/09/24 00:38 97 Room Air 06/09/24 00:12 97 Room Air 06/08/24 23:34 98 Room Air 06/08/24 21:29 97 Room Air 06/08/24 21:08 06/08/24 20:38 PG Care Time/CCT Total # of Minutes Spent Total Time Spent with Patient: Total time spent is greater than 50% in coordination of care (as documented) at patient's floor/unit and/or counseling patient: Coding Level of Care Code 71670 INT INP/OBS CARE 3/75MIN Diagnoses Acute CVA (cerebrovascular accident) I63.9 Hypertension I10 Hypertension type: unspecified Acute confusion R41.0 Chronic cerebral ischemia I67.82 Time Spent (min) 75 (2) Hypertension Hypertension type: unspecified Qualified Code(s): I10 - Essential (primary) hypertension
[2024-06-09] MEDS: ASPIRIN 81 MG ECTAB PO SCH (08:59)
[2024-06-09] MEDS: ATORVASTATIN 40 MG TAB PO SCH (09:00)
--- NOTE | 2024-06-09 10:17 | XCELERA ---
[id number]
--- NOTE | 2024-06-09 11:03 | Hospitalist Progress Note ---
Date of Service June 09, 2024 Assessment & Plan (1) Stroke of right basal ganglia: Plan: Acute right basal ganglier stroke Unclear last known well Patient does not have a PCP and does not have good medical care prior. Has severe hypertension on admission which may either be the cause of or the result of his CVA Goal MAP of approximately 1001 05 for first 24 hours and will gradually reduce blood pressure by further 20% from there to minimize risk of watershed ischemia CTAhead/neck negative Continue aspirin daily Continue atorvastatin 40 mg daily Will start carvedilol 06/10, or if patient is above goal may start 06/09 prior (2) Hypertension: Plan: Anticipate addition of carvedilol 06/10. Will continue to monitor for gradual lowering of blood pressure given severe hypertension with associated CVA on admission and gradual goal of 20% reduction to minimize risk of watershed current BP control adequate. (3) Renal insufficiency: Plan: YOLANDA Unknown baseline Admitting creatinine 1.73, downtrending 1.44 today Trend BMP daily Potassium repleted Will avoid nephrotoxin/LONI/ARB at this time (4) Hypokalemia: (5) Hyperglycemia: Plan: Hyperglycemia without history of DM2 A1c normal, not reflective of DM (6) Confusion: (7) Lactic acidosis: Admission and Anticipated Discharge Date Admission Date: June 08, 2024 Subjective Edward is seen at the bedside. He reports he is tired but otherwise feels "okay ". He is hungry. He does not have a headache. Denies focal strength or sensory changes. Reports he has not been out of bed to walk as we does not know how his balance is but feels normal. Denies chest pain chest pressure, shortness of breath, dyspnea Physical Exam Physical Exam: General: A&Ox3. NAD. Cooperative. Fatigued. HEENT: Atraumatic, normocephalic. Pulm: CTAB A&P. -wheezes, -rales, -rhonchi. Symmetrical chest rise. No increased work of breathing. No respiratory distress. Cardiac: Regular, tachycardic, -mrg. Radial pulses intact and symmetrical. Abdominal: Nontender, nondistended, soft. BS present. Extremities: Smoke Inspector strength, elbow flexion, hip flexion, ankle dorsiflexion/plantarflexion 5/5 bilaterally. Sensation soft touch intact in hands and feet bilaterally Results & Data Results & Data Vital Signs (Past 12 Hours) Vital Signs Temp Pulse Pulse Resp BP BP BP 06/09/24 07:27 100 H 06/09/24 07:14 36.4 C L 76 18 151/81 H 06/09/24 03:10 36.8 C 101 H 18 141/92 H 06/09/24 01:56 70 06/09/24 00:39 36.9 C 70 18 215/119 H 208/123 H 06/09/24 00:38 06/09/24 00:12 69 14 178/103 H 06/08/24 23:34 90 18 205/112 H Pulse Ox Pulse Ox O2 Del Method O2 Del Method 06/09/24 07:27 06/09/24 07:14 97 Room Air 06/09/24 03:10 97 Room Air 06/09/24 01:56 06/09/24 00:39 98 Room Air 06/09/24 00:38 97 Room Air 06/09/24 00:12 97 Room Air 06/08/24 23:34 98 Room Air PG Care Time/CCT Total # of Minutes Spent Total Time Spent with Patient: Total time spent is greater than 50% in coordination of care (as documented) at patient's floor/unit and/or counseling patient: Coding Level of Care Code 38820 SUB INP/OBS CARE 3/50MIN Diagnoses Stroke of right basal ganglia I63.81 Hypertension I10 Hypertension type: unspecified Renal insufficiency N28.9 Hypokalemia E87.6 Hyperglycemia R73.9 Confusion R41.0 Lactic acidosis E87.20 (2) Hypertension Hypertension type: unspecified Qualified Code(s): I10 - Essential (primary) hypertension
[2024-06-09] MEDS: POTASSIUM CHLORIDE CRTAB 20 MEQ TABCR PO STA (11:19)
[2024-06-10 06:55] LABS: Basophils # (auto) 0.03 K/uL (0.00-0.20); Basophils % (auto) 0.4 %; Eosinophils # (auto) 0.08 K/uL (0.00-0.50); Hematocrit (blood only) 43.2 % (42.0-52.0); Hemoglobin 15.2 g/dl (14.0-18.0); Immature Granulocytes # (auto) 0.02 K/uL (0.01-0.20); Immature Granulocytes % (auto) 0.3 %; Lymphocytes # (auto) 1.49 K/uL (1.20-3.40); Lymphocytes % (auto) 19.4 %; Mean Corpuscular Hemoglobin 31.9 pg (25.0-34.0); Mean Corpuscular Hgb Conc 35.2 g/dL (32.0-36.0); Mean Corpuscular Volume 90.8 fL (80.0-100.0); Mean Platelet Volume 12.6 fL (9.4-12.4); Monocytes # (auto) 0.68 K/uL (0.11-0.59); Monocytes % (auto) 8.9 %; Neutrophils # (auto) 5.37 K/uL (1.40-6.50); Platelet Count 116 K/uL (130-400); RDW Coefficient of Variation 12.7 % (11.5-14.5); RDW Standard Deviation 42.1 fL (36.4-46.3); Red Blood Count 4.76 M/uL (4.70-6.10); White Blood Count 7.67 K/ul (4.8-10.8)
[2024-06-10 07:16] LABS: Albumin Globulin Ratio 1.2 (0.9-2); Albumin Level 3.5 gm/dl (3.4-5.0); BUN Creatinine Ratio 11.6 (10-20); Calcium 8.9 mg/dl (8.6-10.3); Creatinine Clr Calc Pharmacy 42.1 ml/min; Globulin 2.9 gm/dl (2.5-4.0); Magnesium 1.8 mg/dl (1.7-2.4); Potassium 3.4 mmol/L (3.5-5.1); Total Protein 6.4 gm/dl (6.0-8.3)
[2024-06-10 07:36] LABS: INR 1.1 (0.9-1.1); Partial Thromboplastin Time 26 Seconds (21-31); Prothrombin Time 11.8 Seconds (9.0-12.0)
[2024-06-10] MEDS: carvediloL 3.125 MG TAB PO SCH (08:19)
[2024-06-10] MEDS: LOSARTAN POTASSIUM 50 MG TAB PO SCH (10:06)
[2024-06-10] MEDS: PANTOprazole 40 MG TAB PO SCH (16:06)
[2024-06-10] MEDS: FAMOTIDINE 20MG IV PUSH 20 MG/5 ML SYR IV STA (16:06)
[2024-06-10] MEDS: LABETALOL HCL IV 5 MG/ML 20ML IV PRN (19:33)
[2024-06-10] MEDS: MELATONIN 3 MG TAB PO PRN (21:08)
--- NOTE | 2024-06-10 22:16 | Ultrasound Report ---
Exam(s): US RENAL EXAM: US Retroperitoneal Limited, Renal CLINICAL HISTORY: resistant htn. TECHNIQUE: Real-time limited ultrasound of the retroperitoneum with image documentation. COMPARISON: CT abdomen 02/08/2010. FINDINGS: Right kidney: 9.5 cm in length. Calculi up to 3 mm. Multiple cysts up to 3.9 cm No solid mass. No hydronephrosis. Doppler examination demonstrates a proximal right renal artery resistive index up to 0.7. Mid right renal artery not visualized. Renal veins appear patent. Left kidney: 8.8 cm length. No stones. Multiple probable cysts up to 4.6 cm. Complex probable septated cyst in the upper pole of left kidney. No solid mass. No hydronephrosis. Doppler examination demonstrates a left renal artery proximal resistive index 0.81. Renal veins appear patent. IMPRESSION: Multiple bilateral renal cysts. Complex/septated cyst in the upper pole of the left kidney. Nonobstructing right renal calcification. Mildly elevated renal artery resistive indices measure up to 0.7 on the right and 0.8 on the left. Electronically signed by: Shane Ernst M.D. 06/10/24 22:16 PM
[2024-06-11 06:42] LABS: Basophils # (auto) 0.05 K/uL (0.00-0.20); Basophils % (auto) 0.6 %; Eosinophils # (auto) 0.14 K/uL (0.00-0.50); Eosinophils % (auto) 1.7 %; Hematocrit (blood only) 44.1 % (42.0-52.0); Hemoglobin 15.7 g/dl (14.0-18.0); Immature Granulocytes # (auto) 0.01 K/uL (0.01-0.20); Immature Granulocytes % (auto) 0.1 %; Lymphocytes # (auto) 1.24 K/uL (1.20-3.40); Lymphocytes % (auto) 14.9 %; Mean Corpuscular Hgb Conc 35.6 g/dL (32.0-36.0); Mean Platelet Volume 12.7 fL (9.4-12.4); Monocytes % (auto) 10.8 %; Neutrophils % (auto) 71.9 %; Platelet Count 113 K/uL (130-400); RDW Coefficient of Variation 12.6 % (11.5-14.5); RDW Standard Deviation 41.4 fL (36.4-46.3); White Blood Count 8.34 K/ul (4.8-10.8)
[2024-06-11 07:13] LABS: Albumin Globulin Ratio 1.2 (0.9-2); Albumin Level 3.4 gm/dl (3.4-5.0); BUN Creatinine Ratio 15.8 (10-20); Bilirubin,Total 0.7 mg/dl (0.2-1.0); Calcium 8.9 mg/dl (8.6-10.3); Globulin 2.9 gm/dl (2.5-4.0); Magnesium 1.8 mg/dl (1.7-2.4); Potassium 3.6 mmol/L (3.5-5.1); Total Protein 6.3 gm/dl (6.0-8.3)
[2024-06-11 07:29] LABS: INR 1.1 (0.9-1.1); Partial Thromboplastin Time 26 Seconds (21-31); Prothrombin Time 11.6 Seconds (9.0-12.0)
[2024-06-11] MEDS: hydrALAZINE 10 MG TAB PO SCH (08:14)
--- NOTE | 2024-06-11 09:52 | Pharmacy Report ---
- Date of Service June 11, 2024 - Pharmacy CVA/TIA Medication Review Medications to Prevent Stroke handout has been added to the patients discharge packet. Antiplatelet(s) * Aspirin 81mg daily Cholesterol * High intensity statin: atorvastatin 40 mg daily DVT Prophylaxis * SCD knee Therapeutic Anticoagulation * No history of Afib/Aflutter noted Type 2 Diabetes * Patient does not have T2DM
[2024-06-11] MEDS: hydrALAZINE HCL 20 MG/ML VIAL ONE (10:19)
[2024-06-11] MEDS: hydrALAZINE HCL 20 MG/ML VIAL IV STA (10:19)
--- NOTE | 2024-06-11 11:04 | Hospitalist Progress Note ---
Date of Service June 11, 2024 Assessment & Plan (1) Stroke of right basal ganglia: Plan: Ischemic. No motor deficits. Continue aspirin, statin, and blood pressure control measures. (2) Hypertension: Plan: He takes carvedilol at home. Losartan was added but has been switched to hydralazine. Will uptitrate as needed. IV hydralazine as needed replaces labetalol as needed. Renal artery Doppler evaluation reveals noncritical stenosis. (3) Renal insufficiency: Plan: Probably chronic from hypertensive nephropathy. Creatinine fluctuating [id number] between 1.7 and 1.4. Will monitor intake and output, serial labs. Losartan was started this admission but has been discontinued (4) Hypokalemia: Plan: Mild. Corrected with replacement therapy (5) Hyperglycemia: Plan: Nonfasting glucose checked on admission. Now resolved. Normal hemoglobin A1c. No history of type 2 diabetes. (6) Confusion: Plan: Present on admission. Now resolved Plan Hopeful discharge to home tomorrow, June 12 Admission and Anticipated Discharge Date Admission Date: June 08, 2024 Subjective Alert and oriented. Blood pressure remains significantly elevated. Losartan discontinued and hydralazine started. Will use IV hydralazine as needed in place of labetalol IV as needed. Review of Systems 2 Review of Systems: Constitutionalno fever or chills ENTno blurred vision, no double vision, no epistaxis, no sore throat Respiratoryno cough, no wheezing, no shortness of breath Cardiacno palpitations, no chest pain, no syncope Alie nausea, vomiting, diarrhea, melena, hematochezia GUno urinary retention, no urinary incontinence, no dysuria, no hematuria Musculoskeletalno joint pain, no muscle tenderness Skinno bruising, no rashes, no pruritus Neurono isolated weakness, no paresthesia, no weakness Psychno depression, no anxiety Physical Exam 2 Physical Exam: General-alert and oriented x3, no fever, no chills HEENT-head atraumatic and normocephalic, pupils equal and reactive to light, extraocular muscles intact Neck-no lymphadenopathy or thyromegaly, trachea midline Chest-clear to auscultation. No rales, wheezing or rhonchi Cardiac-regular rate and rhythm, normal S1 and S2 Abdomen-normal bowel sounds, no hepatosplenomegaly Extremities-no cyanosis, clubbing, or edema Neuro-cranial nerves II through XII intact, motor and sensory function within normal limits, strength symmetrical, no focal deficits Psych-normal affect, normal mood Results & Data Results & Data Vital Signs (Past 12 Hours) Vital Signs Temp Pulse Resp BP BP BP Pulse Ox 06/11/24 10:12 213/126 H 06/11/24 10:10 213/126 H 06/11/24 09:42 194/98 H 06/11/24 07:51 36.6 C 61 20 191/101 H 99 06/11/24 03:01 36.8 C 72 18 173/105 H 96 06/11/24 01:31 171/103 H 06/11/24 00:00 O2 Del Method O2 Del Method 06/11/24 10:12 06/11/24 10:10 06/11/24 09:42 06/11/24 07:51 Room Air 06/11/24 03:01 Room Air 06/11/24 01:31 06/11/24 00:00 Room Air Laboratory Results 06/11/24 06:21 06/11/24 06:21 PG Care Time/CCT Total # of Minutes Spent Total Time Spent with Patient: Total time spent is greater than 50% in coordination of care (as documented) at patient's floor/unit and/or counseling patient: Coding Level of Care Code 75398 SUB INP/OBS CARE 3/50MIN Diagnoses Stroke of right basal ganglia I63.81 Hypertension I10 Hypertension type: unspecified Renal insufficiency N28.9 Hypokalemia E87.6 Hyperglycemia R73.9 Confusion R41.0 (2) Hypertension Hypertension type: unspecified Qualified Code(s): I10 - Essential (primary) hypertension
[2024-06-11] MEDS: hydrALAZINE HCL 20 MG/ML VIAL IV PRN (12:19)
[2024-06-11] MEDS: hydrALAZINE HCL 25 MG TAB PO SCH (13:34)
[2024-06-11] MEDS: carvediloL 6.25 MG TAB PO SCH (16:51)
[2024-06-11] MEDS: hydrALAZINE TAB 50 MG TAB PO SCH (19:51)
[2024-06-12] MEDS: hydrALAZINE TAB 50 MG TAB PO SCH (08:08)
[2024-06-12 08:15] VITALS: O2SAT 98
[2024-06-12] MEDS: carvediloL 6.25 MG TAB PO ONE (09:34)
--- NOTE | 2024-06-12 09:48 | Discharge Summary ---
Discharge Summary Date of Service June 12, 2024 Principal Dx & Hospital Course #1 = Principal Diagnosis (1) Stroke of right basal ganglia: Ischemic. No motor deficits. Continue aspirin, statin, and blood pressure control measures. (2) Hypertension: Much improved with addition of carvedilol and hydralazine. Renal artery Dopplers negative for any significant renal artery stenosis. Incidental finding of complex left renal cyst that we will need outpatient follow-up. (3) Renal insufficiency: Probably chronic from hypertensive nephropathy. Creatinine fluctuating [id number] between 1.7 and 1.4. Will monitor intake and output, serial labs. Losartan was started earlier this admission but has been discontinued (4) Hypokalemia: Mild. Corrected with replacement therapy (5) Hyperglycemia: Nonfasting glucose checked on admission. Now resolved. Normal hemoglobin A1c. No history of type 2 diabetes. (6) Confusion: Present on admission. Now resolved Plan Home today, June 12. Continue carvedilol, hydralazine, aspirin, atorvastatin. Off work until cleared by PCP who he will see tomorrow. Admission HPI Per Admitting Provider The patient is a 63-year-old male with a past medical history including hypertension, who presented to the emergency department after being found confused in his car. He was seen by EMS at the scene, who notes a blood sugar 122, and reported that the patient was not oriented to time. In the emergency department, patient is more alert, but still confused. He knows the year, and he knows that he is in the hospital, but reports that he is in [place]. Discharge Exam General-alert and oriented x3, no fever, no chills HEENT-head atraumatic and normocephalic, pupils equal and reactive to light, extraocular muscles intact Neck-no lymphadenopathy or thyromegaly, trachea midline Chest-clear to auscultation. No rales, wheezing or rhonchi Cardiac-regular rate and rhythm, normal S1 and S2 Abdomen-normal bowel sounds, no hepatosplenomegaly Extremities-no cyanosis, clubbing, or edema Neuro-cranial nerves II through XII intact, motor and sensory function within normal limits, strength symmetrical, no focal deficits Psych-normal affect, normal mood Discharge Plan Discharge Items Patient Disposition: Home - Self-Care Reason For Visit: STROKE LIKE SYMPTOMS Discharge Diagnosis: Hypertensive Encephalopathy, uncontrolled hypertension, acute Ischemic basal ganglia CVA Activity: Resume your previous activity Weightbearing: Full weightbearing Non-emergency contact: Primary Care Provider and Neurologist Call non-emergency contact if: you have any medication questions, your symptoms worsen, your pain is not controlled and your pain is worsening Follow-up/Referrals: Richar Sarabia MD [Physician] - Naveen Davenport DO [Physician] - 06/13/24 1:00 pm (Hospital follow up appointment Please schedule establish care appointment) Diet: Regular and Heart Healthy Addtl Attending Provider Instructions: You were seen in the hospital for confusion and an acute stroke. Your blood pressure was found to be very high. You are now on carvedilol and hydralazine. These prescriptions have been sent to [facility]. You have also been prescribed a low-dose aspirin 81 mg to help prevent recurrent stroke. Please take aspirin 81 mg by mouth daily. You have been prescribed a cholesterol medicine to help reduce your risk of recurrent stroke. Please take atorvastatin 40 mg by mouth once daily. You should have your liver numbers checked by your primary care physician in approximately 2 weeks to ensure you are tolerating this medication well. If you develop any new or worsening symptoms including fever, chills, sweats, chest pain, chest pressure, difficulty breathing, uncontrolled nausea/vomiting, rash, wheezing, passing out or nearly passing out, bleeding, black/bloody bowel movements, or other new or concerning symptoms please call your primary care physician, or call 911 for re-evaluation in the emergency department if you are very concerned. Pending Studies at Discharge: No (LFTs in ~2 weeks) Stand-Alone Forms: [facility], Smoking Cessation, Medications to Prevent Stroke Medications and DC Order Prescriptions: New atorvastatin 40 mg Tablet 40 mg PO QAM 30 Days Qty: 30 0RF aspirin 81 mg Tablet,Delayed Release (Dr/Ec) 81 mg PO QAM 30 Days Qty: 30 0RF carvedilol 12.5 mg Tablet 12.5 mg PO BIDM Qty: 60 0RF hydralazine 100 mg tablet 100 mg PO TID Qty: 100 0RF Discharge Orders: Discharge Order (Routine); Ordered 06/12/24 Ordered By: Zechariah Walker Admission Data Admit Date/Time: 06/08/24 23:38 Attending Provider: Zechariah Walker Admit Provider: Francisco Edward Primary Care Provider: PCP,NO Other Providers: Francisco Edward; Richar Sarabia Hospital Stay Data Consultations 06/08/24 21:53 ED Decision to Admit Stat 06/09/24 00:38 Consult Neurology Routine 06/09/24 11:04 Consult [facility] [employer] chief executive officer Routine Diagnostic Imagining Performed 06/08/24 20:24 CT angio head w con Stat CT angio neck with con Stat CT head/brain wo con Stat 06/08/24 22:30 MRI Brain [MR brain wo con] Stat 06/10/24 13:21 US duplex renal art/vein BI Urgent Pending Results Patient Have Any Pending Studies at Discharge: No (LFTs in ~2 weeks) Discharge Instructions Given to Patient (Per Discharging Provider) You were seen in the hospital for confusion and an acute stroke. Your blood pressure was found to be very high. You are now on carvedilol and hydralazine. These prescriptions have been sent to [facility]. You have also been prescribed a low-dose aspirin 81 mg to help prevent recurrent stroke. Please take aspirin 81 mg by mouth daily. You have been prescribed a cholesterol medicine to help reduce your risk of recurrent stroke. Please take atorvastatin 40 mg by mouth once daily. You should have your liver numbers checked by your primary care physician in approximately 2 weeks to ensure you are tolerating this medication well. If you develop any new or worsening symptoms including fever, chills, sweats, chest pain, chest pressure, difficulty breathing, uncontrolled nausea/vomiting, rash, wheezing, passing out or nearly passing out, bleeding, black/bloody bowel movements, or other new or concerning symptoms please call your primary care physician, or call 911 for re-evaluation in the emergency department if you are very concerned. Total Time Total Time Spent Total Time Spent (In Minutes): 45 minutes Coding Level of Care Code 62997 INP/OBS DISCH >30 MIN Diagnoses Stroke of right basal ganglia I63.81 Hypertension I10 Hypertension type: unspecified Renal insufficiency N28.9 Hypokalemia E87.6 Hyperglycemia R73.9 Confusion R41.0
[2024-06-12 11:13] VITALS: BP 167/88; PULSE 82; RESP 18; TEMP 97.3
[2024-06-12] MEDS ORDERED: carvediloL 12.5 MG TAB PO SCH (17:00)
[2024-06-13 16:21] LABS: Marijuana Quant, GCMS Urine 176 ng/mL (<5)
== END 2024-06-12 13:40 | disposition home or self-care (01) | DRG 65 ==
LOC: ED 20:06 → 2S 23:38 → SUATTDRO 23:38 → 2S 06-09 00:12